=== PATIENT | male | born 1985 | race Caucasian/White ===

== ENCOUNTER → 2017-01-03 22:00 | Emergency (ER) | payer OTHER | END | disposition home or self-care (01) | LOC: CED 22:00 | DX: J32.9 Chronic sinusitis, unspecified (principal); R04.0 Epistaxis; F17.200 Nicotine dependence, unspecified, uncomplicated | CPT/HCPCS: 99283 ==

== ENCOUNTER 2017-04-18 20:00 | Inpatient (IN) | payer OTHER ==
--- NOTE | ~2017-04-18 | DS ---
Unit #: [id number] #: [id number] Patient: MARLEN RODGERS [id number] [facility] [address] [place] [address] [id number] MR#: [id number] NAME: MARLEN RODGERS. ROOM: P182 Age: 32 Sex: M Admission Date: 04/18/2017 : 1985 Discharge Date: 04/23/2017 Attending Physician: Raymon Benson M.D. Primary Care Physician: Perston Mehta M.D. DISCHARGE SUMMARY IDENTIFYING DATA Mr. Rodgers is a 32-year-old single white male, who is a resident of [place], [place], and was self-referred to the hospital on a voluntary basis. DISCHARGE DIAGNOSES Psychiatric: Opioid dependence, moderate, in acute withdrawals; methamphetamine dependence, moderate; opioid-induced mood disorder. Medical: None. Stressors: Moderate psychosocial stressors. HISTORY OF PRESENT ILLNESS Mr. Rodgers is a 32-year-old white male, who presented with his father reporting opioid use disorder and daily use of heroin IV 0.5 g for the last 3 years, the last use today and reports increasing depression, anxiety, irritability, and significant consequences because of his addiction, and reports that prior to his last 3 years, he had 6 years of sobriety, "I relapsed because I stopped attending AA meetings and started being around people that use." Father reports that the patient has lost 40 pounds in the last 2 months and also reports that he has been using methamphetamine IV 0.5 g on a daily basis. However, the patient does report increasing depression, anxiety, psychomotor retardation, feelings of hopelessness and helplessness, and as such, a recommendation for inpatient level of care for safety and stabilization was made. PAST PSYCHIATRIC HISTORY The patient has had a history of inpatient chemical dependency and psychiatric treatment at [facility], and review of the medical records indicate that he is supposed to be on Lexapro and Wellbutrin, but has been noncompliant with the medication and as such has been decompensating. PAST MEDICAL HISTORY No acute or chronic medical illnesses. HOSPITAL COURSE The patient was admitted to the adult chemical dependency unit at [facility] and was oriented to the hospital environment. Routine p.r.n. medications were initiated, and he was started back on his home medications and medications were adjusted and he was closely monitored. He was taking the medications regularly and was tolerating them fairly well and was able to come out of the detox without any complications and was willing to continue treatment on an outpatient basis and as such, it was decided that he will be discharged home and will continue treatment on Unit #: [id number] #: [id number] Patient: MARLEN RODGERS an outpatient basis. DISCHARGE MEDICATIONS Lexapro 20 mg a day for depression, Wellbutrin XL 300 mg in the morning. DISCHARGE CONDITION Stable. PROGNOSIS Fair. Dictated by... Kayla Day/carmela TD: 04/23/2017 20:03 JOB #: [id number] DISCHARGE SUMMARY Page 1 of 1 X Raymon Benson MD X DISCHARGE SUMMARY
--- NOTE | ~2017-04-18 | HP ---
Unit #: [id number] #: [id number] Patient: MARLEN RODGERS [id number] [place] [address] [id number] I MR#: [id number] NAME: MARLEN RODGERS. ROOM: P182 Age: 32 Sex: M Admission Date: 04/18/2017 : 1985 Attending Physician: Raymon Benson M.D. Admitting Physician: Raymon Benson M.D. Primary Care Physician: Preston Mehta M.D. HISTORY AND PHYSICAL HISTORY OF PRESENT ILLNESS Marlen is a 32 year old admitted to [facility] because of his drug use. He shoots heroin. PAST MEDICAL HISTORY Long history of opioid abuse to include IV heroin. PAST SURGICAL HISTORY Hernia repair. ALLERGIES Sulfa. SOCIAL HISTORY Smokes 1 pack per day. Denies alcohol. Admits to regular use of IV heroin and IV methamphetamine. FAMILY HISTORY Medically noncontributory. REVIEW OF SYSTEMS CONSTITUTIONAL: No fever or chills. HEENT: Denies any sore throat, ear pain or runny nose. CARDIOVASCULAR: Denies chest pain, irregular heart rhythm or palpitations. CHEST: Denies shortness of breath or cough. No hemoptysis. GASTROINTESTINAL: Denies nausea, vomiting, diarrhea or chronic constipation. ENDOCRINE: Denies history of increased thirst or urination. No recent significant weight loss or gain. GENITOURINARY: Denies dysuria, frequency, or hematuria. SKIN: Denies any rashes. HEMATOLOGIC: Denies history of increased bleeding or bruising. MUSCULOSKELETAL: Denies any hot, swollen joints. No generalized muscle pain. NEUROLOGIC: Denies problems with vision or speech. No frequent, severe headaches. No numbness, tingling or weakness in any extremities. Denies loss of bladder or bowel control. CURRENT MEDICATIONS 1. Detox protocol. 2. Lexapro 20 mg daily. 3. Wellbutrin XL 300 mg daily. Unit #: [id number] #: [id number] Patient: MARLEN RODGERS PHYSICAL EXAMINATION GENERAL: Alert, well-nourished, in no apparent distress. VITAL SIGNS: Blood pressure 100/52, heart rate 80, respirations 16, temperature 98.6. WEIGHT: 170. HEIGHT: 5 feet 10 inches. SKIN: Warm and dry without rash or lesion. HEENT: Normocephalic. TMs not viewed. Oral and nasal passages clear. Conjunctivae clear. PERRLA. EOMs intact. NECK: Supple without lymphadenopathy or thyromegaly. HEART: Regular rate and rhythm without murmur. LUNGS: Clear. ABDOMEN: Soft, nontender. : Not done. EXTREMITIES: No evidence of cyanosis, clubbing or edema. Moves all without focal deficit. NEUROLOGICAL: Grossly within normal limits. Cranial Nerves: II: Visual farias are intact. III, IV AND : Extraocular movements are intact. Pupils are equal, round and reactive to light. V: Facial sensation is grossly normal. VII: Facial movements and expression are normal. VIII: Auditory acuity grossly intact. IX, X: Uvula is midline. Phonation is normal. XI: Patient shrugs shoulders and turns head normally. XII: Tongue protrudes in the midline. Sensory and Motor Function: Sensory and motor sensation is grossly normal. Motor: moves all extremities well. Coordination: Gait is normal. Deep Tendon Reflexes: Intact. IMPRESSION Psychiatric admission. RECOMMENDATIONS PSYCHIATRIC: Per psychiatrist. MEDICAL: See no contraindication to participate in facility's activities. MEDICAL PROGNOSIS Good. MEDICAL CONDITION Stable. Dictated by... Lynn Ahmadi PCaesarACaleb. for Kayla Holden/jeanmarie TD: 04/19/2017 19:25 JOB #: [id number] Unit #: [id number] #: [id number] Patient: MARLEN RODGERS HISTORY AND PHYSICAL Page 1 of 1 X Lynn Ahmadi HISTORY AND PHYSICAL
--- NOTE | ~2017-04-18 | PN ---
Unit #: [id number] #: [id number] Patient: MARLEN RODGERS [id number] [facility] [address] [place] [address] [id number] I MR#: [id number] NAME: MARLEN RODGERS. ROOM: P182 Age: 32 Sex: M Admission Date: 04/18/2017 : 1985 Attending Physician: Raymon Benson M.D. Admitting Physician: Raymon Benson M.D. Primary Care Physician: Kayla Pacheco PROGRESS NOTES DATE April 22, 2017 DISCUSSION Mr. Rodgers is a 32-year-old white male, who was seen today and chart was reviewed and the case was discussed with the staff. He has been anxious, withdrawn, and rather seclusive to himself. Meanwhile, he has been cooperative with the treatment recommendations and he has been taking the medications and tolerating them fairly well with no reported side effects. MENTAL STATUS EXAMINATION Young white male, who was casually dressed with fair personal hygiene and appears to be in no acute distress or discomfort. He was awake and alert on interaction with intact orientation. His mood is anxious with a congruent affect. He denies any suicidal or homicidal ideations. His insight and judgment remain slightly impaired. TREATMENT PLAN 1. We will continue him on his current medications and treatment protocol, and will monitor his response to the medications, and make further adjustments as needed. 2. We will continue to followup. Dictated by... Kayla Day/sakshi TD: 04/23/2017 08:28 JOB #: [id number] Unit #: [id number] #: [id number] Patient: MARLEN RODGERS DONAL PROGRESS NOTES Page 1 of 1 X Raymon Benson MD PROGRESS NOTE
--- NOTE | ~2017-04-18 | PN ---
Unit #: [id number] #: [id number] Patient: MARLEN RODGERS [id number] [facility] [address] [place] [address] [id number] MR#: [id number] NAME: MARLEN RODGERS. ROOM: P182 Age: 32 Sex: M Admission Date: 04/18/2017 : 1985 Attending Physician: Raymon Benson M.D. Admitting Physician: Raymon Benson M.D. Primary Care Physician: Kayla Pacheco PROGRESS NOTES DATE April 21, 2017 DISCUSSION Mr. Rodgers is a 32-year-old white male, with substance abuse, and mood disorder, who was seen today and chart was reviewed and the case was discussed with the staff. He has been anxious, withdrawn, and rather seclusive to himself. Meanwhile, he has been cooperative with the treatment recommendations and he has been taking the medications and tolerating them fairly well. MENTAL STATUS EXAMINATION Young white male, who was casually dressed with fair personal hygiene and appears to be in no acute distress or discomfort. He was awake and alert with intact orientation. His mood is anxious with a congruent affect. He denies any suicidal or homicidal ideations. His insight and judgment remain slightly impaired. TREATMENT PLAN 1. We will continue him on his current medications and treatment protocol, and will monitor his response to the medications, and make further adjustments as needed. 2. We will continue to followup. Dictated by... Kayla Day/sakshi TD: 04/22/2017 07:19 JOB #: [id number] Unit #: [id number] #: [id number] Patient: MARLEN RODGERS DONAL PROGRESS NOTES Page 1 of 1 X Raymon Benson MD PROGRESS NOTE
--- NOTE | ~2017-04-18 | PA ---
Unit #: [id number] #: [id number] Patient: MARLEN RODGERS [id number] [facility] [place] [address] [id number] I MR#: [id number] NAME: MARLEN RODGERS. ROOM: P182 Age: 32 Sex: M Admission Date: 04/18/2017 : 1985 Date of Assessment: 04/19/2017 Attending Physician: Raymon Benson M.D. Admitting Physician: Raymon Benson M.D. Primary Care Physician: Preston Mehta M.D. PSYCHIATRIC ASSESSMENT DATE OF SERVICE 04/19/2017. IDENTIFYING DATA Mr. Rodgers is a 32-year-old single white male, who is a resident of [place], [place], and was self-referred to the hospital on a voluntary basis. CHIEF COMPLAINT "Opioid abuse." HISTORY OF PRESENT ILLNESS Mr. Rodgers is a 32-year-old white male, who presented with his father reporting opioid use disorder and daily use of heroin IV 0.5 g for the last 3 years, the last use today and reports increasing depression, anxiety, irritability, and significant consequences because of his addiction, and reports that prior to his last 3 years, he had 6 years of sobriety, "I relapsed because I stopped attending AA meetings and started being around people that use." Father reports that the patient has lost 40 pounds in the last 2 months and also reports that he has been using methamphetamine IV 0.5 g on a daily basis. However, the patient does report increasing depression, anxiety, psychomotor retardation, feelings of hopelessness and helplessness, and as such, a recommendation for inpatient level of care for safety and stabilization was made. SUBSTANCE ABUSE HISTORY The patient reports history of opioid and methamphetamine abuse and has been using both of those drugs intravenously, but reports opioids, particularly heroin to be his drug of choice. PAST PSYCHIATRIC HISTORY The patient has had a history of inpatient chemical dependency and psychiatric treatment at [facility], and review of the medical records indicate that he is supposed to be on Lexapro and Wellbutrin, but has been noncompliant with the medication and as such has been decompensating. PAST MEDICAL HISTORY No acute or chronic medical illnesses. ALLERGIES Sulfa drugs. Unit #: [id number] #: [id number] Patient: MARLEN RODGERS PERSONAL AND SOCIAL HISTORY A 32-year-old white male, who reports that he is single, unemployed, and lives at home with his parents and has fairly decent social support system. MENTAL STATUS EXAMINATION Young white male, who was casually dressed with fair personal hygiene, appears to be in no acute distress or discomfort. He was awake and alert on interaction with intact orientation to time, place, and person. His mood was anxious and depressed with a congruent affect. His speech was slow and restricted in content. His thought processes were disorganized with some looseness of associations and flight of ideas. His insight and judgment remain significantly impaired. DIAGNOSTIC IMPRESSION Psychiatric: Opioid dependence, moderate, in acute withdrawal; methamphetamine dependence, moderate; and opioid-induced mood disorder. Medical: None. Stressors: Moderate psychosocial stressors. TREATMENT PLAN 1. The patient has presented with a history of mood disorder and substance abuse and has been decompensating and will need inpatient hospitalization for detoxification, safety, and stabilization. We will start him on detox protocol. We will monitor his response to the medications and make further adjustments as needed. 2. Supportive therapy was provided to the patient. 3. Safe, structured, and nourishing environment will be provided. ESTIMATED LENGTH OF STAY 4 to 5 days. ABILITY TO HELP SELF Limited. WILLINGNESS TO HELP SELF The patient appears to be willing to help self. STRENGTHS 1. Communicative. 2. Cooperative. PROBLEMS 1. Chronic dysphoric symptoms. 2. Chronic chemical dependency. 3. Poor social support system. DISCHARGE CRITERIA This will be contingent upon the patient's ability to go through detox without having any significant withdrawal symptoms as well as his ability to stay safe to himself, particularly after discharge from the hospital. Dictated by... Raymon Benson M.D. PRIYANKA/carmela TD: 04/19/2017 19:00 Unit #: [id number] #: [id number] Patient: MARLEN RODGERS JOB #: [id number] PSYCHIATRIC ASSESSMENT Page 1 of 1 X Raymon Benson MD PSYCHIATRIC ASSESSMENT
--- NOTE | ~2017-04-18 | PN ---
Unit #: [id number] #: [id number] Patient: MARLEN RODGERS [id number] [facility] [address] [place] [address] [id number] I MR#: [id number] NAME: MARLEN RODGERS. ROOM: P182 Age: 32 Sex: M Admission Date: 04/18/2017 : 1985 Attending Physician: Raymon Benson M.D. Admitting Physician: Raymon Benson M.D. Primary Care Physician: Kayla Pacheco PROGRESS NOTES DATE 04/20/2017 DISCUSSION Mr. Rodgers is a 32-year-old white male with substance abuse and mood disorder who was seen today and chart was reviewed and case was discussed with the staff. He remains seclusive to himself. Meanwhile, he has been cooperative with treatment recommendations and has been taking medications and tolerating them fairly well. MENTAL STATUS EXAMINATION Young white male who was casually dressed with fair personal hygiene and appears to be in no acute distress or discomfort. He was awake and alert on interaction with intact orientation. His mood was anxious with congruent affect. He denies any suicidal or homicidal ideation. His insight and judgement remains slightly impaired. TREATMENT PLAN 1. Will continue on his current medications and treatment protocol. Will monitor his response to the medications and make further adjustments as needed. 2. Will continue to follow up. Dictated by... Raymon Benson M.D. IAA/jeanmarie TD: 04/20/2017 16:41 JOB #: [id number] Unit #: [id number] #: [id number] Patient: MARLEN RODGERS PROGRESS NOTES Page 1 of 1 X Raymon Benson MD PROGRESS NOTE
--- NOTE | ~2017-04-18 | A ---
[facility] Nutrition Therapy DATE: 04/19/17 Patient: MARLEN RODGERS Physician: MESSIAIRF Address: [address] [place] [address] Room/Bed: [address], Zip: [place] [address] Admit Date: 04/18/17 Date of : [birth year] Height: 5 10 Weight: [phone] NUTRITIONAL ASSESSMENT: REASON: UNINTENTIONAL WEIGHT LOSS PATIENT ADMITTED FOR HEROIN DETOX PMH: ASTHMA Anthropometrics: HT: 5'10", WT: 170#, BMI: 24.4 Labs: 04/19/17- ALB: 3.4, NA: 134, AST: 68, ALT: 215 Meds: LEXAPRO, WELLBUTRIN XL, DESYREL, MVI, DETOX PROTOCOL Assessment: PATIENT IS A 32 Y/O MALE ADMITTED FOR HEROIN DETOX. PATIENT IS CURRENTLY UNEMPLOYED, LIVES WITH HIS FATHER, SMOKES 1 PPD, AND HAS DAILY HEROIN AND METH USE FOR THE LAST 3 YEARS. PER NEEDS ASSESSMENT PATIENT STATED A POOR APPETITE WITH A 40# WEIGHT LOSS OVER LAST 2 MONTHS, AND HE IS SLEEPING AN AVERAGE OF 12 HOURS/NIGHT. NURSING REPORTS GOOD PO INTAKES. CURRENT PSYCH MEDS MAY CAUSE AN INCREASE IN WEIGHT AND APPETITE. THERE ARE NO SKIN OR GI ISSUES NOTED ATT. PATIENT IS ON A REGULAR DIET WITH NO CAFFEINE. PATIENT'S BMI IS WITHIN A HEALHTY RANGE. Dx: UNINTENTIONAL WEIGHT LOSS R/T DETOX AEB SELF-REPORTED WEIGHT LOSS AND DECREASED APPETITE, NUTRITIONAL RISK POINT Intervention: REGULAR DIET, MEDS PER MD, PSYCH, DETOX Monitoring, Evaluation and Goals: 1. ADEQUATE PO INTAKES 50% OF MEALS 2. PREVENT, CORRECT MICRO/MACRO NUTRIENT DEFICIENCIES MONITOR; WEIGHTS, LABS, PO/FLUID INTAKES Recommendations: 1. CONTINUE REGULAR DIET WITH NO CAFFEINE TOLERATED. OFFER SNACKS BETWEEN MEALS 2. ENCOURAGE ADEQUATE PO AND FLUID INTAKES 3. OBTAIN WEIGHTS ROUTINELY (EVERY 3-4 DAYS) 4. IF PO INTAKES FALL BELOW 50% OF MEALS PLEASE ORDER ENSURE BID TO PROMOTE ADEQUATE KCAL AND PROTEIN INTAKES RD TO F/U PER PROTOCOL AND PRN R/T PATIENT MILDLY COMPROMISED [facility] Nutrition Therapy DATE: 04/19/17 Patient: MARLEN RODGERS Physician: ADRIAF Address: [address] [place] [address] Room/Bed: [address], Zip: [place] [address] Admit Date: 04/18/17 Date of : [birth year] Height: 5 10 Weight: [phone] Respectfully, CEDRICK HOLLIDAY RD, LD [facility] cc: client file
[2017-04-19 09:59] LABS: ALBUMIN SERUM 3.4 g/dL (3.5-5.0); BILIRUBIN,TOTAL 0.6 mg/dL (0.2-2.0); BUN/CREATININE RATIO 10.9; CALCIUM SERUM 9.2 mg/dL (8.4-10.2); CREATININE SERUM 1.1 mg/dL (0.6-1.4); GLOM FILT RATE Estimated 87.1 mL/min (>60); PROTEIN TOTAL SERUM 5.6 g/dL (6.0-8.3)
[2017-04-19 10:06] LABS: BASOPHIL% 0.1 % (0-2.5); EOSINOPHIL# 0.2 X10e3 (0-0.7); HEMATOCRIT 37.4 % (38.0-50.0); LYMPHOCYTE# 1.7 X10e3 (1.0-3.5); MEAN CORPUSCULAR HEMOGLOBIN 26.5 PG (28-34); MEAN CORPUSCULAR HGB CONC 31.9 g/dL (30-36); MEAN PLATELET VOLUME 8.8 FL (6.5-11.5); MONOCYTE# 0.9 X10e3 (0-1.0); NEUTROPHIL# 8.6 X10e3 (1.5-7.1); NEUTROPHIL% 74.9 % (40-75); PLATELET COUNT 273 X10e3 (140-420); RED BLOOD COUNT 4.51 X10e (3.90-5.60); RED CELL DISTRIBUTION WIDTH 15.4 % (11.0-15.5); WHITE BLOOD COUNT 11.5 X10e3 (4.0-10.5)
[2017-04-19 10:21] LABS: DIFF IND NO
[2017-04-21 11:07] LABS: URINE APPEARANCE CLOUDY; URINE BILIRUBIN NEG (NEG); URINE BLOOD NEG (NEG); URINE COLOR AMBER; URINE GLUCOSE NORM (NORM); URINE KETONE NEG (NEG); URINE LEUKOCYTE ESTERASE NEG (NEG); URINE NITRATE NEG (NEG); URINE PROTEIN NEG (NEG); URINE SPECIFIC GRAVITY 1.025 (1.003-1.035); URINE UROBILINOGEN NORM (NORM)
[2017-04-21 12:44] LABS: AMPHETAMINE POS (NEG); BARBITURATES NEG (NEG); BENZODIAZEPINES NEG (NEG); COCAINE NEG (NEG); MARIJUANA NEG (NEG); OPIATES POS (NEG); TRICYCLIC ANTIDEPRESSANTS NEG (NEG); U METHADONE NEG (NEG)
== END 2017-04-23 11:15 | disposition home or self-care (01) | DRG 897 ==
LOC: P1E 21:53
PROVIDERS: Psychiatry & Neurology Psychiatry
PROC: HZ2ZZZZ Detoxification Services for Substance Abuse Treatment (ICD-10-PCS; principal; 2017-04-18)
DX: F11.23 Opioid dependence with withdrawal (principal); F15.20 Other stimulant dependence, uncomplicated; F11.24 Opioid dependence with opioid-induced mood disorder; Z88.8 Allergy status to other drugs, medicaments and biological substances; F17.210 Nicotine dependence, cigarettes, uncomplicated
CPT/HCPCS: 80053; 80307; 81003; 85025; 86592